=== PATIENT | male | born 1985 | race African-American/Black ===

== ENCOUNTER 2022-01-02 01:54 | Emergency (ER) | payer MEDICAID ==
[~2022-01-02] VITALS: Ht 175.3 cm; Wt 75.0 kg
[2022-01-02] MEDS ORDERED: MORPHINE SULFATE 4 MG/ML CPJ (NOT FOR IM USE) IV STA (02:11)
[2022-01-02] MEDS ORDERED: ONDANSETRON HCL 4MG/2ML INJ IV STA (02:11)
[2022-01-02] MEDS ORDERED: SODIUM CHLORIDE 0.9% 1,000 ML IV ONE (02:15)
[2022-01-02] MEDS ORDERED: BACITRACIN ZINC OINT UDPKT TOP ONE (02:15)
[2022-01-02] MEDS ORDERED: CEFAZOLIN 1000MG PREMIX 50 ML IV ONE (02:15)
[2022-01-02] MEDS ORDERED: TETANUS, DIPHTHERIA, PERTUSSIS VAC/PF 0.5ML (>10YR OLD) IM ONE (02:15)
[2022-01-02 02:19] LABS: BASOPHILS % 0.6 % (0.0-2.0); EOSINOPHILS % 2.1 % (0.0-5.0); HEMATOCRIT. 42.6 % (42.0-52.0); HEMOGLOBIN. 14.2 g/dL (14.0-18.0); LYMPHOCYTES % 47.1 % (20.0-50.0); MEAN CORPUSCULAR HEMOGLOBIN 30.8 pg (28.0-32.0); MEAN CORPUSCULAR VOLUME 92.5 fL (80.0-94.0); MEAN PLATELET VOLUME 8.2 fl (7.4-10.4); MONOCYTES % 8.4 % (2.0-8.0); NEUTROPHILS % 41.8 % (40.0-76.0); PLATELET 211 x1000/uL (130-400); RED BLOOD CELL COUNT 4.61 mill/uL (4.7-6.1); RED CELL DISTRIBUTION WIDTH 13.9 % (11.6-14.6)
[2022-01-02 02:28] LABS: CHLORIDE 109 mEq/L (98-107)
[2022-01-02] MEDS ORDERED: IOHEXOL-350 100 ML BOTTLE ONE (03:11)
[2022-01-02 08:14] VITALS: BP 115/68
== END 2022-01-02 08:14 | disposition short-term general hospital (02) ==
LOC: ER 01:54
DX: S82.292A Other fracture of shaft of left tibia, initial encounter for closed fracture (principal); X95.9XXA Assault by unspecified firearm discharge, initial encounter; Y93.89 Activity, other specified; Y92.89 Other specified places as the place of occurrence of the external cause; Z18.89 Other specified retained foreign body fragments
CPT/HCPCS: 36415; 73590; 73706; 80048; 85025; 86850; 86900; 86901; 90471; 90715; 96365; 96375; 99291; J0690; J2270; J2405; J7030; Q9967